=== PATIENT | male | born 1975 | race Caucasian/White ===

== ENCOUNTER → 2021-09-14 08:41 | Outpatient (BNVA) | payer MEDICAID, OTHER, SELFPAY | PROVIDERS: Visit Provider Surgery | DX: Z12.11 Encounter for screening for malignant neoplasm of colon (principal) | CPT/HCPCS: 99024 ==

== ENCOUNTER 2021-10-18 06:26 | Day surgery (SDC) | payer MEDICAID, SELFPAY ==
[2021-10-12 14:07] VITALS: BMI 20.5
[2021-10-18 06:44] VITALS: BP 123/87; PULSE 69; RESP 18; TEMP 36.3; O2SAT 98
[2021-10-18] MEDS: sodium chloride 0.9% 1,000 ML 30 ML IV (06:48)
--- NOTE | 2021-10-18 07:22 | PM.HP ---
Providers/Chief Complaint Primary Care Provider: WU Reich History of Present Illness Carlos Cruz is a 45 year old male who presents for his first colon cancer screening. His brother got colon cancer at the age of 54, therefore he is due. Denies any abdominal pain nausea, emesis, hematochezia and/or melena. Review of Systems General: Reports: 10 or more systems reviewed and unremarkable except in HPI and below Medications/Allergies Home Medications Medication Instructions Recorded Confirmed Last Taken Type No Known Home Medications 10/18/21 10/18/21 Unknown History Allergies Allergy/AdvReac Type Severity Reaction Status Date / Time No Known Allergies Allergy Verified 10/18/21 06:43 Vitals/I&O/Wt Last Vital Signs Temp 97.3 F L 10/18/21 06:44 Pulse 69 10/18/21 06:44 Resp 18 10/18/21 06:44 BP 123/87 10/18/21 06:44 Pulse Ox 98 10/18/21 06:44 Physical Exam Narrative: General : Patient is well developed , no acute distress, oriented x3 Head : Normal cephalic, a-traumatic. Ears : Pinnae and external canal are normal. Hearing is normal. Eyes : PERRLA, Sclera and injection are normal. No conjunctival discharge. Nose : Mucous membranes are without erythema. Throat : buccal mucosa is normal, gums are without significant recession or hypertrophy. Lungs : Equal chest rise bilaterally, no use of accessory muscles, trachea is midline. Cor : Rate and rhythm are normal. Abdomen : Soft, ND, NT, no g/r/m Extremities : No edema, no cyanosis or clubbing, dorsalis pedis pulses are present bilaterally, non-tender to palpation of calves. Upper extremities are normal bilaterally. Back : non-tender to palpation, no CVA tenderness. Neuro : CN II - XII intact, Upper and lower extremities have equal and full strength A&P Assessment and plan (1) Colon cancer screening: Status: Acute Plan Colonoscopy The risks and benefits of the procedure, including bleeding, infection, intestinal perforation requiring surgery, missed lesion, or explained to the patient. He is understanding of the risks and wishes to proceed. 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
--- NOTE | 2021-10-18 07:44 | ANES.PREANE2 ---
Pre-Anesthetic Assessment Height/Weight: Height 1.88 m Weight 72.575 kg Temp Pulse Resp BP Pulse Ox 97.3 F L 69 18 123/87 98 10/18/21 06:44 10/18/21 06:44 10/18/21 06:44 10/18/21 06:44 10/18/21 06:44 Operation Date: 10/18/21 08:00 Proposed Procedures p Colonoscopy 42679/[id number](Not Applicable) - Kieran Dueñas DO Familial anesthetic complications: none Was Clonidine taken within 24 hours: N/A Last intake: Intake Last Liquid Date 10/17/21 Last Liquid Time 23:30 Last Solid Date 10/16/21 Last Solid Time 23:30 Social Tobacco (chews) and No alcohol Exam alert, oriented x 3, clear to auscultation bilaterally and regular rate & rhythm Airway Mallampati: Class II Dentition: other (brdige bottom) Pulmonary Sleep Apnea CV/HEM None reported None reported Hepatic None reported GI None reported Metabolic None reported Musc/skel None reported Neuropsych None reported Anesthetic Plan ASA status: 2 Anesthesia: MAC Risk of > 500 ml blood loss (7ml/kg in children): No Medications/Allergies Home Medications Medication Instructions Recorded Confirmed Last Taken Type No Known Home Medications 10/18/21 10/18/21 Unknown History Allergies Allergy/AdvReac Type Severity Reaction Status Date / Time No Known Allergies Allergy Verified 10/18/21 06:43 Current Medications Generic Name Dose Route Start Last Admin Trade Name Freq PRN Reason Stop Dose Admin Sodium Chloride 1,000 mls @ 30 mls/hr 10/18/21 06:45 10/18/21 06:48 Sodium Chloride 0.9% IV 10/19/21 06:44 30 mls/hr .Q24H BRITT Administration Data Anesthesia Cardiac Studies: No Data to Display
[2021-10-18 08:13] VITALS: BP 124/91; PULSE 73; RESP 16; TEMP 36.2; O2SAT 94
--- NOTE | 2021-10-18 08:16 | ANE.PACU2 ---
Inpatient post-anesthesia follow up: Airway intact: Yes Vital signs: Temperature 97.1 F Pulse Rate 73 Respiratory Rate 16 Blood Pressure 124/91 Pulse Oximetry 94 Oxygen Delivery Me thod Room Air Oxygen Flow Rate Fraction of Inspir ed Oxygen Hydration adequate: Yes Nausea and vomiting: No Pain level: 1 Mental status: Baseline
[2021-10-18 08:26] VITALS: BP 127/76; PULSE 67; RESP 18; O2SAT 100
== END 2021-10-18 08:49 | disposition home or self-care (01) ==
PROVIDERS: PCP Nurse Practitioner; Visit Provider Surgery
PROC: 0DJD8ZZ Inspection of Lower Intestinal Tract, Via Natural or Artificial Opening Endoscopic (ICD-10-PCS; CPT 45378; principal; 2021-10-18 08:00)
DX: Z12.11 Encounter for screening for malignant neoplasm of colon (principal); Z80.0 Family history of malignant neoplasm of digestive organs; F17.220 Nicotine dependence, chewing tobacco, uncomplicated; G47.30 Sleep apnea, unspecified
CPT/HCPCS: 45378; J2704; J7030